=== PATIENT | female | born 1940 | race Caucasian/White ===

== ENCOUNTER 2021-04-30 14:14 | Outpatient (CLI) | payer MEDICARE, SELFPAY ==
--- NOTE | 2021-04-30 14:24 | BI_ITS ---
MAMMOGRAPHY - BILATERAL DIAGNOSTIC REASON FOR EXAM: Female, 80 years old. Left breast mass. PERTINENT HISTORY: Sister with breast cancer. Grandmother with breast cancer. TECHNIQUE: Digital bilateral breast julio (3D mammographic acquisition) in the CC and MLO projections. 2-D mediolateral oblique (MLO) and craniocaudad (CC) views of both breasts were obtained. CAD: Full Field Digital Mammography with Computer Added Detection was performed. COMPARISON: None. Baseline examination. FINDINGS: Breast Composition: There are scattered areas of fibroglandular density. The palpable abnormality corresponds to a 2.6 cm x 2.6 cm spiculated mass in the deep upper lateral aspect of the left breast. Microcalcifications are seen within it. This is highly suggestive of a carcinoma. Biopsy strongly recommended. No other significant abnormalities are identified. BI/DIAG MAMM W/CAD, BILAT IMPRESSION: The abnormality corresponds to a 2.6 cm x 2.6 cm spiculated mass in the deep upper outer aspect of the left breast with evidence of microcalcifications. A biopsy is strongly recommended. ASSESSMENT CATEGORY: BIRADS Category 5: Highly Suggestive of Malignancy - Appropriate Action Should Be Taken. A letter regarding these results will be sent to the patient by the facility within 30 days. Approximately 10% of breast cancers are not detected by mammography. A normal mammogram should not delay biopsy of a clinically suspicious abnormality. Electronically Signed: Ronnie Felix MD at 15:12 EST ,
--- NOTE | 2021-04-30 14:24 | US_ITS ---
History: Breast mass Ultrasound of the left breast: Findings: Ultrasound images of the left breast demonstrate a 2.4 cm solid mass along the 3 o'clock position 4 cm from the nipple demonstrating lobulated contour and prominent acoustic attenuation suspicious for neoplasm. IMPRESSION: 2.4 cm solid left breast mass suspicious for neoplasm. Correlate with diagnostic mammogram. at 1603 Reported and signed by: Ruddy Merino MD Electronically Signed: Ruddy Merino MD at 16:02 EST , US/Breast Limited Unilateral
== END 2021-04-30 23:59 | disposition home or self-care (01) ==
PROVIDERS: PCP Family Medicine; Referring Provider Family Medicine; Visit Provider Family Medicine
DX: N63.20 Unspecified lump in the left breast, unspecified quadrant (principal); R92.8 Other abnormal and inconclusive findings on diagnostic imaging of breast; Z80.3 Family history of malignant neoplasm of breast
CPT/HCPCS: 76642; 77062; 77066; G0279

== ENCOUNTER 2021-05-05 16:41 | Outpatient (CLI) | payer MEDICARE, SELFPAY ==
--- NOTE | 2021-05-05 | IMM_PTH ---
PATIENT: LOUIS LOPEZ LOC: [facility] U#:[id number] AGE/SX: 80/F ROOM: RE05/05/[address]: Dr. Edward Villa MD : 1940 BED: DIS: 05/05/2021 SPEC #: [id number] RECD: 05/07/21 13:21 STATUS: RONALD REDipesh #: [id number] TRACIE: 05/05/21 00:[address]: Edward Villa DEPT: IMMUNOHISTOCHEMISTRY RECD BY: Louise Irwin ENTERED: 05/07/21 13:23 SP TYPE: IMMUNO OTHR DR: Dr. Santino Jones MD Tissues: Left breast, NOS Procedures: CALPONIN-1 (add) CK5-6 (add) CK8 (add) YOUSSEF-2 (add) E-CAD (add) HER2 JULIO (add) KI-67 (add) P53 (add) TN (add) P40 (add) ER (initial) PHYSICIAN & INSTITUTION [address] [address] SPECIMEN INFORMATION: Tissue Source: Left breast Clinical Info: Abnormal left breast ultrasound Specimen Number: [id number] CPT code: 80256, 66615 x7, 27934 x3 METHODOLOGY: Deparaffinized sections of prefer/formalin-fixed tissue or PAP/DQ stained slides are incubated with monoclonal/polyclonal antibodies/oligonucleotide probes. Localization is made via biotin free immunoperoxidase method. Appropriate controls are performed and reacted as expected. Results on target cell population are indicated in the following table: RESULTS: ANTIBODY / CLONE RESULT P53 (DO-7) positive, 75% Ki-67 (30-9) positive, 45% CK8 (21jxyxZ98) positive CK5-6 (D5 & 1684) negative Calponin-1 (BM232S) negative P40 (BC28) negative E-Cad (ECH-6) positive YOUSSEF-2 (SP21) positive MORPHOMETRIC ANALYSIS ER (clone 6F11) >95%, moderate to strong intensity TN (clone 16/1E2) 30%, variable moderate to weak intensity Her-2Neu (clone CB11) 1+ The prognostic test for HER2 is performed on formalin-fixed paraffin embedded tissue. A 3+ (positive) staining pattern is defined as intense, homogeneous, complete, circumferential membranous staining in >10% of contiguous tumor cells. A similar weak (2+) staining pattern is interpreted as equivocal. ADEBAYO follow-up testing is recommended for all equivocal cases. Positivity/negativity for ER/TN is reported if > or < 1% of the tumor cells are immuno- reactive, respectively. The ASCO/CAP criteria is used for scoring. Reference: Journal of Clinical Oncology, 2013; 31:2458-1616 & 2010; 16:9532-7751. Duration of fixation: 31 Hrs; Sample Adequate: Yes. These assays have not been validated on decalcified tissues. Results should be interpreted with caution given the likelihood of false negativity on decalcified specimens. These tests were developed and their performance characteristics determined by [facility]. They may not have been cleared or approved by the U.S. Food and Drug Administration. The FDA has determined that such clearance or approval is not necessary. The above immunohistochemical/dualISH markers are ordered and reviewed by the Pathologist. INTERPRETATION: Left breast, core biopsy: Invasive ductal carcinoma. Positive for estrogen receptors (favorable prognostic indicator). Positive for progesterone receptors (favorable prognostic indicator). Negative for overexpression of JBJ1ycj. AM:candy 05/11/2021
--- NOTE | 2021-05-05 12:30 | BRBX_PTH ---
PATIENT: LOUIS LOPEZ LOC: [facility] U#:[id number] AGE/SX: 80/F ROOM: RE05/05/[address]: Dr. Edward Villa MD : 1940 BED: DIS: 05/05/2021 SPEC #: [id number] RECD: 05/05/21 16:08 STATUS: RONALD GABRIEL #: [id number] TRACIE: 05/05/21 12:[address]: Edward Villa DEPT: SURGICAL PATHOLOGY RECD BY: Mary Jenkins ENTERED: 05/06/21 09:12 SP TYPE: BREAST BX OTHR DR: Dr. Santino Jones MD Tissues: Left breast, NOS Procedures: Surgery Specimen Level IV HEADER OPERATION: Left breast biopsy PRE-OP DIAGNOSIS: Abnormal left breast ultrasound TISSUE SUBMITTED: Left breast tissue MICROSCOPIC DIAGNOSIS Left breast, core biopsy: Invasive ductal carcinoma with the follow characteristics: Nuclear grade ? 2-3/3. Maximal length 11 millimeters. Other findings ? tumor necrosis and microcalcifications. See comment. AM:candy 05/07/2021 COMMENT Immunohistochemistry ([id number]) supports the above diagnosis. MICROSCOPIC DESCRIPTION Slides are reviewed. GROSS DESCRIPTION Received in fixative is one container labeled with the patient's name and designated left breast. The specimen consists of a single elongated fragment of castro-white soft tissue measuring 2 cm in length and 0.2 cm in maximal diameter. The specimen is totally submitted in one cassette. / AM:candy 05/06/2021 TC:0 CPT: 43636
== END 2021-05-05 23:59 | disposition home or self-care (01) ==
LOC: LABSPEC 16:42
PROVIDERS: PCP Family Medicine; Visit Provider Surgery
DX: C50.919 Malignant neoplasm of unspecified site of unspecified female breast (principal)
CPT/HCPCS: 88305; 88341; 88342

== ENCOUNTER 2021-05-22 13:51 | Outpatient (CLI) | payer MEDICARE, SELFPAY ==
--- NOTE | 2021-05-22 13:53 | CT_ITS ---
STUDY: CT CHEST, ABDOMEN T PELVIS WITH CONTRAST REASON FOR EXAM: Female, 80 years old. Cancer. RADIATION DOSAGE (If Supplied By Facility): CTDIvol = ( 10.94 ) mGy, DLP = ( 917.18 ) mGycm TECHNIQUE: Transaxial imaging was performed following intravenous administration of IV 100mL Isovue-300. Multiplanar coronal and sagittal images were reformatted. Individualized dose optimization techniques were used for this CT. COMPARISON: No relevant priors. FINDINGS: CHEST The lungs are well-expanded. There is a 2 mm pleural-based nodule posteriorly in the right lower lobe best seen on image 61 of series 6. Lungs are otherwise clear. There is no demonstrated pleural abnormality. Normal heart and pericardium. Coronary artery calcifications. Normal mediastinum. Normal hilar regions. Normal unenhanced pulmonary arteries. No atherosclerotic changes of the aortic arch without aneurysm or dissection. There is an increased kyphosis of the thoracic spine. There is a soft tissue density in the lateral left breast measuring 2.3 x 1.3 x 2.3 cm. Soft tissues are otherwise unremarkable. There is no axillary lymphadenopathy. ABDOMEN Normal liver. Normal gallbladder and extrahepatic biliary system. Normal spleen. Normal pancreas. Question calcified splenic artery aneurysm in the splenic hilum. Normal bilateral adrenal glands. Normal right kidney. Normal left kidney. Normal ureters. Normal visualized stomach. Normal small intestine. Pelvic colonic diverticuli without acute inflammatory change. There is no mass or obstruction. There are surgical clips in the region of the appendix consistent with a prior appendectomy. There is diffuse atherosclerotic calcification of the abdominal aorta with elongation and tortuosity, but without a demonstrated aneurysm. Normal inferior vena cava. Normal retroperitoneum. PELVIS Normal urinary bladder. Unremarkable vaginal cuff.. There is no pelvic fluid. No free air within the peritoneal cavity. There is no pelvic lymphadenopathy or mass lesion. Normal visualized pelvic arteries. Normal abdominal wall. There are diffuse degenerative changes of the visualized lumbar spine. CT/CT Chest, Abd, Pel w/Contrast IMPRESSION: 1. A soft tissue mass in left breast. 2. Small {density in the right lower lobe. A pleural-based nodules are usually benign however in light of patient''s history follow up is recommended. 3. No acute intra-abdominal or pelvic process. 4. No evidence of metastatic disease. Electronically Signed: Magan Manning DO at 22:57 EST Reading Location ID and State: [address] [place] [address] Tel [phone], Service support ,
== END 2021-05-22 23:59 | disposition home or self-care (01) ==
PROVIDERS: PCP Family Medicine; Referring Provider Internal Medicine Medical Oncology; Visit Provider Internal Medicine Medical Oncology
DX: C50.912 Malignant neoplasm of unspecified site of left female breast (principal)
CPT/HCPCS: 71260; 74177; Q9967

== ENCOUNTER 2021-05-26 09:48 | Outpatient (CLI) | payer MEDICARE, SELFPAY ==
--- NOTE | 2021-05-26 09:53 | NM_ITS ---
CLINICAL: 80-year-old female with history of carcinoma of the breast. WHOLE BODY 99m Tc MDP RADIONUCLIDE BONE SCINTIGRAPHY COMPARISON: CT of the chest, abdomen and pelvis reports 05/22/2021 FINDINGS: Following the intravenous administration of 25.0 mCi of 99m Tc MDP, whole body bone images reveal: 1. Increased radiopharmaceutical concentration is encountered in the mid cervical spine posteriorly on the left and right, upper cervical spine posteriorly on the right, second-fourth lumbar vertebra, acromioclavicular and sternoclavicular compartments of both shoulders, knee articulations bilaterally. 2. Facilitated uptake is demonstrated in the left posterior 10th and right posterior lateral 11th ribs. 3. The remaining skeletal structures are scintigraphically unremarkable with normal-appearing renal images and urinary bladder activity identified. Enhanced radiotracer distribution is demonstrated in the midline frontal calvarium in proximity to the sagittal suture most consistent with a normal variant. NM/Bone Scan Whole Body IMPRESSION: 1. The increase in radiopharmaceutical concentration identified in the bilateral posterior ribs is most consistent with trauma-fracture. Plain film radiography correlation may be of benefit for further evaluation. 2. 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 3. There is no definitive typical scintigraphic evidence of diffuse axial skeletal metastatic disease on the current examination. Electronically Signed: Tyrone Quiñonez DO at 7:53 EDT ,
== END 2021-05-26 23:59 | disposition home or self-care (01) ==
LOC: NM 09:51
PROVIDERS: PCP Family Medicine; Referring Provider Internal Medicine Medical Oncology; Visit Provider Internal Medicine Medical Oncology
DX: C50.912 Malignant neoplasm of unspecified site of left female breast (principal)
CPT/HCPCS: 78306; A9503

== ENCOUNTER 2024-12-03 13:05 | Emergency (ER) | payer MEDICARE, SELFPAY ==
[2024-12-03 13:06] VITALS: BP 142/57; PULSE 91; RESP 18; TEMP 36.8; O2SAT 95; BMI 25.7
--- NOTE | 2024-12-03 15:33 | EX.ED.DYSGE1 ---
HPI History of Present Illness Chief Complaint: Wound PFSH PFS Medical History Renal failure Hypercholesteremia Left facial droop Home Medications ?Medication ?Instructions ?Recorded ?Last Taken ?Type aspirin 81 mg chewable tablet 81 mg PO DAILY@0800 /07/2612/03/24 Rx amlodipine 5 mg tablet 5 mg PO DAILY 05/05/21 12/03/24 History donepezil 5 mg tablet 5 mg PO DAILY 05/05/21 12/03/24 History glipizide 2.5 mg tablet 2.5 mg PO DAILY 12/03/24 12/03/24 History lisinopril 10 mg tablet 10 mg PO DAILY 12/03/24 12/03/24 History lovastatin 40 mg tablet 40 mg PO QHS 12/03/24 12/02/24 History metformin 500 mg tablet,extended 1,000 mg PO BID 12/03/24 12/03/24 History release 24 hr Allergy/AdvReac Type Severity Reaction Status Date / Time No Known Allergies Allergy Verified 12/03/24 13:09 Family History Mother Diabetes Heart disease Father Heart disease CVA (cerebral vascular accident) Sister Breast cancer Surgical History H/O left breast biopsy (~04/2021) History of appendectomy History of lobectomy of thyroid History of 3 sections History of hysterectomy Social History Smoking Status: Never smoker EXAM Physical Exam Const Vital Signs: 12/03/24 13:06 12/03/24 15:37 12/03/24 15:37 Temperature 98.2 F 98.0 F Temperature Source Oral Oral Pulse Rate 91 84 Respiratory Rate 18 16 Blood Pressure 142/57 H 150/58 H 150/58 H Blood Pressure Mean 85 88 88 Pulse Ox 95 97 Oxygen Delivery Method Room Air Room Air 12/03/24 17:00 12/03/24 18:37 Temperature 98.1 F Temperature Source Oral Pulse Rate 80 72 Respiratory Rate 16 16 Blood Pressure 148/60 H 145/73 H Blood Pressure Mean 89 97 Pulse Ox 98 97 Oxygen Delivery Method Room Air MDM MDM MDM Narrative Medical decision making narrative: HISTORY OF PRESENT ILLNESS: Chief complaint: Wound 83-year-old female history of type 2 diabetes, hypertension, lipidemia, history of breast cancer presents with wound on left breast. Per patient's and family she has had untreated breast Cancer for 2 years. Per chart onset was in 2021 approximately 3 years ago. This Tuesday daughter noted blood in the patient's throat which concerned her. They present to the ED for further evaluation and treatment REVIEW OF SYSTEMS: Pertinent positives: Left breast wound Pertinent negatives: Vomiting PHYSICAL EXAM: Nursing triage notes reviewed, Vital signs reviewed Constitutional: please see [facility] HENT: MMM Eyes: Pupils equal round and reactive to light, Extraocular muscles intact Neck: No stridor, no JVD, full neck ROM Lungs: Clear to auscultation, No wheezing or rales. No increased work of breathing, no conversational dyspnea, no accessory muscle use, no nasal flaring. No respiratory distress noted Heart: Regular rate and rhythm, No murmurs, No rubs and No gallops, 2+ distal pulses (radial, femoral, posterior tibial) in all extremities Breast: Performed applied behavior science specialist in room. Verbal consent obtained. Abdomen: Soft, there is no tenderness, rigidity, rebound or guarding, no obvious peritoneal signs, no palpable pulsatile abdominal masses, no auscultated abdominal bruit : No CVAT Extremities: No edema Neuro: No new focal neurological deficits, cranial nerves II through XII intact, 5/5 strength in all present extremities. Intact sensation to light touch in all present extremities, 2+ reflexes bilateral patella tendons. Skin: Macerated tissue noted to the left breast approximately 8 x 8 cm wound is approximately 5 cm in depth. There is yellow drainage surrounding erythema. No palpable abscess. No crepitus or bullae noted MEDICAL DECISION MAKING: Chief Complaint: please see [facility] External records reviewed: Last ED visit in [facility] was from 2014 Factors affecting care: As per [facility] Social determinants of health: none History obtained from others: none Consults: Social work consulted [facility] Narrative: Patient was evaluated approximately 2-1/2 hours after initial arrival to the ED secondary to poor departmental dynamics including high-volume high acuity. There is currently 31 patients in the emergency department time evaluation for Patient was initially hemodynamically stable, afebrile and nontoxic-appearing. Exam with deformity consistent with likely untreated breast cancer I considered the following differential diagnosis: Deeper abscess, overlying cellulitis I obtained a broad lab and imaging to further determine if the patient was suffering from a life-threatening etiology. Initially treat the patient with IV vancomycin for infection control. ALL IMAGES (IF OBTAINED) HAVE BEEN PERSONALLY REVIEWED AND INTERPRETED BY MYSELF. CBC with no leukotyosis, mild anemia, no thrombocytopenia BMP without significant abnormality, no JHON, noted mild metabolic acidosis without endorgan perfusion with elevated anion gap and low bicarb is likely related to cancer CT scan of the chest shows metastatic breast cancer. No obvious drainable abscess The patient's presentation is likely secondary to untreated breast cancer. Social work was able to get a hospice evaluation and set up for the patient as an outpatient. She will be given an oral antibiotic to treat any potential infectious etiology. She is appropriate discharge home. Will also give a fast pass cancer referral as an outpatient as well. The patient and/or family, caregivers express understanding. The patient and/or family, caregivers agrees with the plan. Shared decision making: I will have a discussion with the patient and or visitors regarding risk/benefits of further testing or admission. They will be made aware of of the risk/benefits inherent in this decision they will be given the opportunity to voice understanding. Total critical care time today provided was at least 0 minutes. This excludes separately billable procedures. Critical care time (if documented) is secondary to the patient having high probability of clinically significant/life threatening deterioration in the patient's condition which required my urgent intervention. Impression: 1. Breast Cancer 2. Metastatic cancer Dispo: Discharge home This note was generated with Kongregate dictation software. It may contain incorrect words, spelling, and punctuation that were not noted in review of the chart prior to signing. Lab Data Labs: Laboratory Results - last 24 hr 12/03/24 15:57 WBC 6.9 RBC 3.84 L Hgb 11.1 L Hct 34.1 L MCV 88.8 MCH 28.9 MCHC 32.6 RDW Std Deviation 44.6 H RDW Coeff of [place] 13.7 Plt Count 455 H MPV 9.5 Immature Gran % (Auto) 0.400 Neut % (Auto) 71.5 H Lymph % (Auto) 13.6 L [place] % (Auto) 11.9 H Eos % (Auto) 1.9 Baso % (Auto) 0.7 Absolute Neuts (auto) 4.9 Absolute Lymphs (auto) 0.94 Nucleated RBC % 0 Sodium 139 Potassium 4.8 Chloride 105 Carbon Dioxide 18.5 L Anion Gap 16 H BUN 22 H Creatinine 0.99 Estim Creat Clear Calc 38.47 L Est GFR (MDRD) Non-Af 57 L BUN/Creatinine Ratio 21.9 H Glucose 73 Calcium 9.7 Radiography Diagnostic Testing: Clinical Impression(s) from Imaging Studies Chest CT 12/03/24 16:10 IMPRESSION: Significantly progressed metastatic disease associated with left breast malignancy, as described above. Nodular skin thickening and broad open soft tissue wound/ulceration in the overlying lateral left breast and anterior left axillary region. No drainable fluid collection/abscess. Innumerable bilateral metastatic pulmonary nodules. Probable malignant small-moderate left pleural effusion. Metastatic lesions involving the anterior left 3rd rib and sternal body. Numerous prominent bilateral mediastinal and hilar presumed metastatic lymph nodes. Left axillary adenopathy. Reading Location: [facility] Discharge Plan Triage Chief Complaint: Wound ED Provider: Gerardo Nation Dx/Rx/DC Orders Prescriptions: No Action donepezil 5 mg tablet 5 mg PO DAILY amlodipine 5 mg tablet 5 mg PO DAILY aspirin 81 MG tablet,chewable 81 mg PO DAILY@0800 0RF Patient Comments: Blood thinner for heart health lovastatin 40 mg tablet 40 mg PO QHS lisinopril 10 mg tablet 10 mg PO DAILY metformin 500 mg tablet extended release 24 hr 1,000 mg PO BID glipizide 2.5 mg tablet 2.5 mg PO DAILY Primary Care Provider: Elaine Gibson Referrals: Elaine Gibson MD [Primary Care Provider, Internal Medicine] Print Language: Greenlandic
[2024-12-03 15:37] VITALS: BP 150/58; PULSE 84; RESP 16; TEMP 36.7; O2SAT 97
--- NOTE | 2024-12-03 16:10 | CT_ITS ---
PROCEDURE: CT CHEST WITH CONTRAST 12/03/2024 REASON FOR EXAM: LEFT CHEST WOUND R/O ABSCESS History of untreated left breast cancer diagnosed 2021 TECHNIQUE: Procedure Code: CTCHW Modality: CT Procedure: CHEST WITH CONTRAST Coronal and Sagittal reconstruction series were provided. CONTRAST: Isovue 300 VOLUME: 75 mL One or more dose reduction techniques were used (e.g., Automated exposure control, adjustment of the mA and/or kV according to patient size, use of iterative reconstruction technique). RADIATION DOSE SUMMARY: DLP: 267.89 mGycm COMPARISON: CT chest 05/22/2021. FINDINGS: Aggressive appearing nodular mass lesions within the left breast and axilla, related to known left breast cancer have substantially progressed since prior exam. Dominant left breast subcutaneous nodular mass measures approximately 4.4 x 2.6 cm in axial plane, with associated overlying nodular skin thickening, and numerous adjacent nodular probable satellite lesions in the anterior left chest wall. Left axillary nodular mass/metastatic lymph node conglomerate measures 5.2 x 3.2 cm in axial plane. Broad open soft tissue wound/ulceration in the adjacent lateral left breast and anterior axillary region. No drainable fluid collection/abscess. Aggressive erosive changes involving the anterior left 3rd rib. Ill-defined sclerotic lesion involving the upper body of the sternum. No other discrete osseous lytic or blastic lesions appreciated. Innumerable bilateral metastatic nodular lesions throughout both lungs. Moderate left pleural effusion with adjacent passive atelectasis, which may be malignant. No pneumothorax. Patent central airways. Multiple mildly enlarged bilateral mediastinal and hilar lymph nodes, presumably metastatic. No enlarged right axillary lymph nodes. Left axillary metastatic lymphadenopathy as noted above. No significant abnormality is seen in the partially included upper abdomen, subject to the limitation imposed by early arterial phase timing of IV contrast. CT/Chest WITH Contrast IMPRESSION: Significantly progressed metastatic disease associated with left breast maligna ncy, as described above. Nodular skin thickening and broad open soft tissue wound/ulceration in the overlying lateral left breas t and anterior left axillary region. No drainable fluid collection/abscess. Innumerable bilateral metastatic pulmonary nodules. Probable malignant small-m oderate left pleural effusion. Metastatic lesions involving the anterior left 3rd rib and sternal body. Numerous prominent bilat eral mediastinal and hilar presumed metastatic lymph nodes. Left axillary adenopathy. Reading Location: [facility]
[2024-12-03 16:22] LABS: Hematocrit 34.1 % (37-47); Hemoglobin 11.1 g/dL (12.0-15.0); Immature Granulocytes Count 0.030 X10^3/uL (0.0-0.0); Mean Corp Hgb Conc 32.6 g/dL (32-36); Mean Corpuscular Volume 88.8 fL (81-99); Mean Platelet Vol. 9.5 fl (6.2-12.0); NRBC Flagged by Analyzer 0 % (0-5); Platelet Count 455 K/mm3 (150-450); RBC Distribution Width CV 13.7 % (11.6-14.6); RBC Distribution Width SD 44.6 fl (35.1-43.9); Red Blood Count 3.84 M/mm3 (4.2-5.4); White Blood Count 6.9 K/mm3 (4.4-11.0)
[2024-12-03 16:46] LABS: Anion Gap 16 (5-15); BUN 22 mg/dL (4-19); BUN/Creat Ratio 21.9 RATIO (10-20); Calcium,Total 9.7 mg/dL (7.6-11.0); Carbon Dioxide 18.5 mmol/L (21.0-32.0); Chloride 105 mmol/L (98-108); Estimated Creatinine Clearance 38.47 ml/min (50-250); Glucose 73 mg/dL (70-99); Potassium 4.8 mmol/L (3.3-5.1)
[2024-12-03] MEDS: Vancomycin HCl 1,000 MG in 0.9% Normal Saline (250mL Bag) 250 ML 250 MG IV (16:59)
[2024-12-03 17:00] VITALS: BP 148/60; PULSE 80; RESP 16; TEMP 36.7; O2SAT 98
[2024-12-03 18:37] VITALS: BP 145/73; PULSE 72; RESP 16; O2SAT 97
--- NOTE | 2024-12-03 19:29 | CM.ED ---
Social Work SW met with patient, daughter and patients . Family expressed concern regarding patients care needs and prognosis. Family is requesting a hospice referral with [facility]. Referral completed. No further needs identified at this time. Beckie Prasad, MANAGER FORENSIC, ERP IMPLEMENTATION CONSULTANT
[2024-12-03 21:00] VITALS: PULSE 83; RESP 17; O2SAT 97
[2024-12-03 21:12] VITALS: BP 145/73; PULSE 72; RESP 16; TEMP 36.7; O2SAT 97
== END 2024-12-03 21:26 | disposition home or self-care (01) ==
PROVIDERS: Emergency Provider Emergency Medicine; PCP Student in an Organized Health Care Education/Training Program; Visit Provider Emergency Medicine
DX: S21.002A Unspecified open wound of left breast, initial encounter (principal); C79.51 Secondary malignant neoplasm of bone; C50.912 Malignant neoplasm of unspecified site of left female breast; E11.9 Type 2 diabetes mellitus without complications; E78.00 Pure hypercholesterolemia, unspecified; I10 Essential (primary) hypertension; Z79.82 Long term (current) use of aspirin; Z79.899 Other long term (current) drug therapy; Z79.84 Long term (current) use of oral hypoglycemic drugs; E87.20 Acidosis, unspecified; X58.XXXA Exposure to other specified factors, initial encounter
CPT/HCPCS: 71260; 80048; 85025; 96365; 96366; 99284; Q9967; A4216